=== PATIENT | male | born 1960 | race Caucasian/White ===

== ENCOUNTER 2017-01-20 09:08 | Emergency (ER) | payer MEDICARE, OTHER ==
[~2017-01-20] VITALS: Ht 172.7 cm; Wt 140.0 kg
[~2017-01-20 09:08] MED LIST: ATROPINE SULFATE 1 MG/10 ML SYRINGE IV ONE; CALCIUM CHLORIDE 10% SOLN 1 GRAM/10 ML SYR IV ONE; EPINEPHrine HCL (1:10,000) 1 MG/10 ML SYRINGE IV ONE; EPINEPHrine HCL (1:1000) 30 MG/30 ML VIAL IV ONE; SODIUM BICARBONATE 8.4% INJ 50 MEQ/50 ML SYR IV ONE
[2017-01-20 09:12] VITALS: O2SAT 72
[2017-01-20 09:26] VITALS: O2SAT 72
--- NOTE | 2017-01-20 10:26 | PD ---
HPI Chief Complaint: Code Blue Time Seen by Provider: 09:36 Travel History International Travel<30 days: No (unknown) Contact w/Intl Traveler<30days: No (unknown) History of Present Illness HPI 56yo M with cerebral palsy, DM brought in by [facility] as cardiac arrest. States when they arrived, he was unresponsive and bradycardic but then became asystole in transport. Sister found pt unresponsive this morning. As per charge nurse, pt had abnormal CXR and an outpatient CT chest was scheduled. Combitube was placed by [facility] and pt was intubated with CMAC with visualization of ET tube through vocal cords. Pt was given epi x3, sodium bicarb in the field. Blood glucose was in the 500s. Pt was asystole when he arrived in the ED. Epi x3, sodium bicarb x1 and calcium chloride x1 given. ROSC obtained at 9:25am. Pt started on epi drip. Pt then became bradycardic and then pulseless at 9:38am. Epi x2 was given as well as atropine x1. Pt remained in asystole and cardiac US confirmed no cardiac activity. Time of called at 9:47am. PFSH Past Medical History Arthritis: No Asthma: No Autoimmune Disease: No Heart Rhythm Problems: No High Cholesterol: No Chest Pain: No Congestive Heart Failure: No COPD: No Cerebrovascular Accident: No Diabetes: No GERD: No Glaucoma: No Headaches: No Hepatitis: No Hiatal Hernia: No Hypertension: Yes Kidney Stones: No Myocardial Infarction: No Renal Failure: No Seizures: No Sleep Apnea: No Thyroid Disease: No Ulcer: No Past Surgical History Abdominal Surgery: No AICD: No Cardiac Surgery: No Ear Surgery: No Endocrine Surgery: No Eye Surgery: No Genitourinary Surgery: No Gynecologic Surgery: No Oral Surgery: No Pacemaker: No Thoracic Surgery: No Social History Alcohol Use: No Tobacco Use: No Substance Use: No Allergies-Medications (Allergen,Severity, Reaction): Coded Allergies: No Known Allergies (Verified Allergy, Unknown, 04/11/04) Reported Meds & Prescriptions Reported Meds & Active Scripts Active Review of Systems ROS Limitations: Clinical Condition Physical Exam Narrative GENERAL: 56yo M unresponsive. SKIN: Focused skin assessment warm/dry. HEAD: Atraumatic. Normocephalic. EYES: Pupils dilated and fixed in right at 5mm and 4mm and unreactive in left. ENT: Clear fluid coming from mouth. NECK: Trachea midline. No JVD. CARDIOVASCULAR: Asystole. RESPIRATORY: Intubated. Breath sounds were heard on both lungs but left appears slightly diminished. US at bedside showed lung sliding in both lungs. GASTROINTESTINAL: Abdomen soft, Distended. MUSCULOSKELETAL: No obvious deformities. No clubbing. No cyanosis. No edema. + Left tibfib IO from [facility]. NEUROLOGICAL: Unresponsive. No response from painful stimuli. Data Data Last Documented VS Vital Signs Date Time Temp Pulse Resp B/P Pulse Ox O2 Delivery O2 Flow Rate FiO2 01/20/17 10:34 116/71 01/20/17 09:26 72 100 01/20/17 09:12 15.00 Orders Atropine Inj (Atropine Inj) (01/20/17 05:00) Calcium Chloride Inj (Calcium Chloride I (01/20/17 05:00) Epinephrine (1:10,000) Inj (Epinephrine (01/20/17 05:00) Epinephrine (1:1000) Inj (Epinephrine (1 (01/20/17 05:00) Sodium Bicarbonate 8.4% Inj (Sodium Bica (01/20/17 05:00) MDM Medical Decision Making Medical Screen Exam Complete: Yes Emergency Medical Condition: Yes Differential Diagnosis Asystole secondary to AL vs. Massive PE vs. ICH Narrative Course 56yo M arrived as cardiac arrest. Please see HPI for further details. Dr. Reid who was pt's PMD was called and will be writing the certificate. Pt's sister was informed. Procedures Procedure Narrative The patient was put in optimal position for the procedure. The patient was intubated with a 7.5 cuffed endotracheal tube. Tube placement was confirmed by visualization of the tube and balloon passing through the cords, capnometry. Breath sounds were well aerated bilaterally postintubation. No breath sounds over stomach. Diagnosis Primary Impression: Cardiac arrest Condition: Meme Arroyo DO Jan 20, 2017 10:26
[2017-01-20 10:34] VITALS: BP 116/71
== END 2017-01-20 17:45 | disposition expired ==
LOC: NEPE 09:08 → NEPI 17:45
DX: I46.9 Cardiac arrest, cause unspecified (principal); I10 Essential (primary) hypertension; G80.9 Cerebral palsy, unspecified
CPT/HCPCS: 92950; 99285; J0171; J0461